=== PATIENT | female | born 1990 | race Caucasian/White ===

== ENCOUNTER 2018-09-15 03:52 | Emergency (ER) | payer SELFPAY ==
[~2018-09-15] VITALS: Ht 154.9 cm; Wt 49.9 kg
--- OUTSIDE RECORDS SUMMARY | 2018-09-15 03:54 | XMS REPORT ---
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 Allergies, Adverse Reactions, Alerts Allergy Name Allergy Type Status Severity Reaction(s) Onset Date Inactive Date Treating Clinician Comments No Known Allergies DA Active U 2011-06-17 00:00:00 Medications This patient has no known medications. Encounters Start Date/Time End Date/Time Encounter Type Admission Type Attending Clinicians [facility] Care Department Encounter ID 2018-07-14 11:32:00 2018-07-14 11:32:00 Emergency E [id number] 2017-09-22 00:00:00 2017-09-22 00:00:00 Outpatient [facility] [id number] 2017-09-19 00:00:00 2017-09-19 00:00:00 Outpatient [facility] [id number] 2017-08-05 14:55:54 2017-08-05 14:55:54 Outpatient [facility] [id number] 2017-06-27 10:27:55 2017-06-27 10:27:55 Outpatient [facility] [id number] 2017-05-21 08:10:40 2017-05-21 08:10:40 Outpatient [facility] [id number] 2017-05-09 12:50:32 2017-05-09 12:50:32 Outpatient [facility] [id number] 2017-05-06 00:00:00 2017-05-06 00:00:00 Outpatient [facility] [id number] 2017-05-02 12:53:05 2017-05-02 12:53:05 Outpatient [facility] [id number] 2017-04-30 10:44:54 2017-04-30 10:44:54 Outpatient [facility] [id number] 2017-04-23 00:00:00 2017-04-23 00:00:00 Outpatient [facility] [id number] 2017-04-17 15:10:55 2017-04-17 15:10:55 Outpatient [facility] [id number] 2017-03-27 14:20:29 2017-03-27 14:20:29 Outpatient [facility] [id number] 2017-03-20 00:00:00 2017-03-20 00:00:00 Outpatient [facility] [id number] 2017-03-10 13:03:10 2017-03-10 13:03:10 Outpatient [facility] [id number] 2017-03-07 00:00:00 2017-03-07 00:00:00 Outpatient [facility] [id number] 2017-02-28 00:00:00 2017-02-28 00:00:00 Outpatient [facility] [id number] 2017-02-24 15:20:03 2017-02-24 15:20:03 Outpatient [facility] [id number] 2016-10-21 09:47:04 2016-10-21 09:47:04 Outpatient [facility] [id number] 2016-10-21 09:43:17 2016-10-21 09:43:17 Outpatient [facility] [id number] 2016-10-14 08:52:25 2016-10-14 08:52:25 Outpatient [facility] [id number] 2016-09-30 10:45:50 2016-09-30 10:45:50 Outpatient [facility] [id number] 2016-09-30 10:40:39 2016-09-30 10:40:39 Outpatient [facility] [id number] 2016-09-19 19:38:01 2016-09-19 19:38:01 Emergency [facility] [id number] 2016-09-19 16:41:13 2016-09-19 16:41:13 Emergency [facility] [id number] 2016-09-19 14:28:44 2016-09-19 14:28:44 Outpatient [facility] [id number] 2016-09-19 13:28:19 2016-09-19 13:28:19 Outpatient [facility] [id number] 2016-09-16 11:07:20 2016-09-16 11:07:20 Outpatient [facility] [id number] 2016-09-13 15:43:25 2016-09-13 15:43:25 [facility] [place] [id number]
--- OUTSIDE RECORDS SUMMARY | 2018-09-15 03:54 | XMS REPORT | Clinical Summary ---
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 Metronidazole Medium 07/21/2014 Medications End Date Status Medication Sig Dispensed Refills Start Date Active QUEtiapine (SEROQUEL) 200 Take 200 mg 0 mg tabletIndications: by mouth at anxiety bedtime nightly. Active benztropine (COGENTIN) 2 Take 2 mg by 0 mg tabletIndications: mouth 2 times anxiety daily. Active busPIRone (BUSPAR) 15 mg Take 15 mg by 0 tabletIndications: mouth 2 times anxiety, 1/2 tablet BID daily. Active tretinoin (RETIN-A) 0.1 % Apply to 40 g 2 topical creamIndications: affected area 6 Giant comedone at bedtime nightly. Active ciclesonide (ZETONNA) 37 Use 1 [place] 6.1 g 1 mcg/actuation nasal HFA in each 7 inhalerIndications: Nasal nostril congestion daily. Active cetirizine (ZYRTEC) 10 mg Take 1 tablet 30 tablet 1 tabletIndications: Nasal by mouth 8 congestion daily. Active naproxen (NAPROSYN) 500 Take 1 tablet 60 tablet 1 mg tabletIndications: by mouth 2 8 Upper back pain times daily (with meals). Active Problems Problem Noted Date Bipolar 1 disorder 09/13/2016 Immunizations Name Administration Dates Next Due Influenza Vaccine 02/29/2016 (Deferred: Contraindication), 04/21/2015 (Deferred: Contraindication), 12/24/2013 Influenza Vaccine, 02/24/2017 Seasonal, Injectable Tdap Tetanus, diphtheria, 02/04/2014 acellular pertussis Vaccine Family History Medical History Relation Name Comments Diabetes Paternal Grandfather Diabetes Paternal Grandmother Relation Name Status Comments Father Alive Mother Alive Paternal Grandfather Paternal Grandmother Social History Date Tobacco Use Types Packs/Day Years Used Current Every Day Smoker Smokeless Tobacco: Never Used Tobacco Cessation: Ready to Quit: Yes; Counseling Given: No Drinks/Week oz/Week Comments Alcohol Use 0 Standard drinks or equivalent 0.0 socially No Food Insecurity Answer Date Recorded Within the past 12 months, you worried that your Never true 03/27/2017 food would run out before you got money to buy more. Within the past 12 months, the food you bought Never true 03/27/2017 just didn't last and you didn't have money to get more. Sex Assigned at Date Recorded Not on file Industry Job Start Date Occupation Not on file Not on file Not on file Travel End Travel History Travel Start No recent travel history available. Last Filed Vital Signs Not on file Plan of Treatment Health Maintenance Due Date Last Done Comments IMM Influenza Seasonal 12/22/2018 02/24/2017 Oct to May (>/=19 yrs) Cervical Cancer Scrn (3 03/12/2020 03/12/2017 Yrs) Goals Goal Patient Associated Recent Progress Patient-Stat Author Goal Type Problems ed? Eat Healthy Lifestyle No Meg Perez Reduce pain Lifestyle No Meg Perez Results Not on fileafter 09/14/2017 Insurance Type Payer Benefit Subscriber ID Effective Phone Address Plan / Dates Group HD SELF-PAY SELF-PAY xxxxxxx 2017- [phone] [id number] [place] [address] Guarantor Name Account Relation to Date of Phone Billing Address Type Patient ENAMORADOOLINDA Youngblood Personal/F Head of 1990 [phone] [id number] [facility] Household (Home) [place] [id number] (Self)
--- NOTE | 2018-09-15 04:26 | Diagnostic Imaging Report ---
EXAMINATION: PA and lateral views of the chest. COMPARISON: None CLINICAL HISTORY: Right-sided chest pain DISCUSSION: Lines/tubes: None. Lungs: The lungs are well inflated and clear. No pneumonia or pulmonary edema. Pleura: No pleural effusion or pneumothorax. Heart and mediastinum: The cardiomediastinal silhouette is normal. Bones and soft tissues: No acute bony abnormalities. IMPRESSION: No acute cardiopulmonary abnormalities. Signed by: Dr. Rob Andres M.D. on 09/15/2018 4:23 AM
[2018-09-15 04:44] VITALS: BP 129/72
== END 2018-09-15 04:51 | disposition home or self-care (01) ==
LOC: ER 03:52
DX: R07.89 Other chest pain (principal); F17.200 Nicotine dependence, unspecified, uncomplicated
CPT/HCPCS: 71046; 93005; 99283

== ENCOUNTER 2020-02-03 19:59 | Emergency (ER) | payer SELFPAY ==
[~2020-02-03] VITALS: Ht 154.9 cm; Wt 50.8 kg
[2020-02-03] MEDS ORDERED: KETOROLAC TROMETHAMINE 30 MG/ML VIAL IV STA (20:12)
[2020-02-03] MEDS ORDERED: METOCLOPRAMIDE HCL 10 MG/2ML VIAL IV ONE (20:15)
[2020-02-03 20:32] LABS: BASOPHILS # (AUTO) 0.1 (0.0-0.1); BASOPHILS % 1.3 % (0.0-1.0); EOSINOPHILS # (AUTO) 0.1 (0.0-0.4); EOSINOPHILS % 1.5 % (0.0-6.0); HEMATOCRIT 38.4 % (34.2-44.1); HEMOGLOBIN 12.4 g/dL (12.0-16.0); LYMPHOCYTES # (AUTO) 2.5 (1.0-3.2); LYMPHOCYTES % 26.9 % (18.0-39.1); MEAN CORPUSCULAR HGB CONC 32.3 g/dL (31-35); MEAN CORPUSCULAR VOLUME 99.2 fL (81-99); MONOCYTES # (AUTO) 0.9 (0.2-0.8); MONOCYTES % 9.5 % (4.4-11.3); NEUTROPHILS # (AUTO) 5.7 (2.1-6.9); NEUTROPHILS % 60.4 % (38.7-80.0); PLATELET COUNT 274 x10e3/uL (140-360); RED BLOOD COUNT 3.87 x10e6/uL (3.6-5.1); RED CELL DISTRIBUTION WIDTH 12.3 % (11.7-14.4)
[2020-02-03 20:36] LABS: BILIRUBIN,URINE NEGATIVE (NEGATIVE); CLARITY,URINE CLEAR (CLEAR); COLOR,URINE YELLOW (YELLOW); KETONES,URINE NEGATIVE (NEGATIVE); LEUKOCYTE ESTERASE ,URINE NEGATIVE (NEGATIVE); NITRITE,URINE NEGATIVE (NEGATIVE); PREGNANCY TEST, URINE NEGATIVE (NEGATIVE); PROTEIN,URINE DIPSTICK NEGATIVE (NEGATIVE); URINE UROBILINOGEN 0.2 mg/dL (0.2 - 1)
[2020-02-03 20:45] LABS: BACTERIA,URINE FEW /HPF; EPITHELIAL CELLS,URINE MODERATE /LPF; RBC,URINE 0-5 /HPF (0-5)
[2020-02-03 20:50] LABS: ALANINE AMINOTRANSFERASE 12 IU/L (0-55); ALBUMIN 4.5 g/dL (3.5-5.0); ALBUMIN/GLOBULIN RATIO 1.5 (0.8-2.0); ALKALINE PHOSPHATASE 31 IU/L (40-150); ANION GAP 10.6 mmol/L (8-16); BLOOD UREA NITROGEN 12 mg/dL (7-26); BUN/CREATININE RATIO 15 (6-25); CALCIUM 9.2 mg/dL (8.4-10.2); CARBON DIOXIDE 28 mmol/L (22-29); CHLORIDE 105 mmol/L (98-107); CREATINE KINASE 54 IU/L (29-168); CREATININE, SERUM 0.78 mg/dL (0.57-1.11); EST GLOMERULAR FILTRATION RATE > 60 ML/MIN (60-); GLUCOSE 86 mg/dL (74-118); LIPASE 29 U/L (8-78); POTASSIUM 3.6 mmol/L (3.5-5.1); SODIUM 140 mmol/L (136-145)
[2020-02-03 21:48] VITALS: BP 108/68
[2020-02-03] MEDS ORDERED: DICYCLOMINE HCL10 MG PO (22:11)
[2020-02-03] MEDS ORDERED: IOPAMIDOL 370 MG/ML 200 ML INFUS..BTL INJ ONE (22:25)
[2020-02-03] MEDS ORDERED: SODIUM CHLORIDE 0.9% 50ML 50 ML ONE (22:25)
== END 2020-02-03 22:24 | disposition home or self-care (01) ==
LOC: ER 20:14
DX: R07.89 Other chest pain (principal); R51.9 Headache, unspecified; R10.30 Lower abdominal pain, unspecified; R30.0 Dysuria; R53.1 Weakness; R94.31 Abnormal electrocardiogram [ECG] [EKG]
CPT/HCPCS: 36415; 71045; 74177; 80053; 81001; 81025; 82550; 82553; 83690; 84484; 85025; 93005; 99284; J1885; J2765; Q9967